=== PATIENT | female | born 1970 | race Caucasian/White ===

== ENCOUNTER 2020-01-01 09:42 | Outpatient (CLI) | payer BC, SELFPAY ==
--- NOTE | 2020-01-01 10:03 | XR_ITS ---
WS: [id number] XR knee LT 3V* [id number] REASON FOR EXAM: left knee pain FINDINGS: Degenerated settling of the medial meniscal portion of the left knee. The patella femoral articulation shows degenerate changes. The patella tibial space is narrowed suggesting slight abnormal configuration. Mild lateral tracking of the patella is also seen. XR/XR knee LT 3V* [id number] IMPRESSION: Patella Vergae Degenerated medial meniscal disease Degenerated changes of the patella femoral articulation.
== END 2020-01-01 09:43 | disposition home or self-care (01) ==
LOC: RAD 09:44
PROVIDERS: Family Provider Nurse Practitioner Family; PCP Nurse Practitioner Family; Visit Provider Orthopaedic Surgery
DX: M17.12 Unilateral primary osteoarthritis, left knee (principal); M25.562 Pain in left knee
CPT/HCPCS: 73562

== ENCOUNTER 2020-02-12 07:48 | Day surgery (SDC) | payer BC, SELFPAY ==
[2020-02-11 12:10] VITALS: BMI 55.3
[2020-02-12 08:06] VITALS: BP 167/88; PULSE 77; RESP 16; TEMP 36.4; O2SAT 97
[2020-02-12] MEDS: sodium chloride 0.9% 1,000 ML 30 ML IV (08:11)
--- NOTE | 2020-02-12 08:11 | ANES.PREANE2 ---
Pre-Anesthetic Assessment Pre-Anesthetic Assessment: Height/Weight: Height 1.63 m Weight 146.057 kg Temp Pulse Resp BP Pulse Ox 97.5 F L 77 16 167/88 97 02/12/20 08:06 02/12/20 08:06 02/12/20 08:06 02/12/20 08:06 02/12/20 08:06 Preop Diagnosis: Persistent GERD and screening colonoscopy Proposed Procedure: Operation Date: 02/12/20 09:30 Proposed Procedures p EGD/COLON 82293 14847 K21.9 Z12.11(Not Applicable) - Maurilio Juarez MD s Colonoscopy(Not Applicable) - Maurilio Juarez MD Familial anesthetic complications: None Was Beta Yariel taken within 24 hours: N/A Last intake: Intake Last Liquid Date 02/11/20 Last Liquid Time 22:00 Last Solid Date 02/10/20 Last Solid Time 22:00 Social: Social History: No alcohol and No tobacco Exam: Pre-Anes Outpt Exam: alert, oriented x 3, clear to auscultation bilaterally and regular rate & rhythm Airway: Cervical ROM: WNL MP: 3 Additional comments: missing Pulmonary: Pulmonary: Asthma (2 different inhalers) CV/HEM: CV/HEM: HTN : : None reported Hepatic: Hepatic: None reported GI: GI: GERD Metabolic: Metabolic: Morbid obesity Musc/skel: Musc/skel: None reported Neuropsych: Neuropsych: None reported Anesthetic Plan: ASA status: 2 Anesthesia: MAC Risk of > 500 ml blood loss (7ml/kg in children): No PFSH Anesthesia PFSH: Social History Smoking and tobacco status: never smoked Alcohol intake: never Data Anesthesia Cardiac Studies: No Data to Display
--- NOTE | 2020-02-12 08:21 | W.PM.OPSUD ---
Surgery/Procedure H&P Update DATE OF PROCEDURE: February 12, 2020 DATE H&P PERFORMED: 02/05/20 H&P UPDATE INFORMATION: I have reviewed H&P completed within last 30 days, I have examined patient prior to procedure and No changes to prior documentation PREOP DIAGNOSIS: Persistent GERD and screening colonoscopy PLANNED PROCEDURE: Operation Date: 02/12/20 09:30 Proposed Procedures p EGD/COLON 16514 23474 K21.9 Z12.11(Not Applicable) - Maurilio Juarez MD s Colonoscopy(Not Applicable) - Maurilio Juarez MD
[2020-02-12 09:38] VITALS: BP 118/83; PULSE 66; RESP 20; TEMP 36.6; O2SAT 98
[2020-02-12 09:53] VITALS: BP 119/83; PULSE 68; RESP 20; TEMP 36.6; O2SAT 98
[2020-02-13 14:26] LABS: H. Pylori / CLO Test Positive
== END 2020-02-12 10:15 | disposition home or self-care (01) ==
PROVIDERS: Family Provider Nurse Practitioner Family; PCP Physician Assistant Medical; Visit Provider Surgery
PROC: 0DJ08ZZ Inspection of Upper Intestinal Tract, Via Natural or Artificial Opening Endoscopic (ICD-10-PCS; CPT 43235; principal; 2020-02-12 09:25)
PROC: 0DJD8ZZ Inspection of Lower Intestinal Tract, Via Natural or Artificial Opening Endoscopic (ICD-10-PCS; CPT 45378; 2020-02-12 09:25)
DX: Z12.11 Encounter for screening for malignant neoplasm of colon (principal); K21.9 Gastro-esophageal reflux disease without esophagitis; K29.70 Gastritis, unspecified, without bleeding; E66.01 Morbid (severe) obesity due to excess calories; Z68.43 Body mass index [BMI] 50.0-59.9, adult; I10 Essential (primary) hypertension
CPT/HCPCS: 43239; 45378; 12345; 87077; J2704; J7030

== ENCOUNTER 2020-02-21 13:26 | Outpatient (CLI) | payer BC, SELFPAY ==
--- NOTE | 2020-02-21 14:30 | XR_ITS ---
WS: [id number] LATERAL LUMBAR SPINE: 3 view. Lateral radiographs are performed in upright neutral, flexion and extension to the patient's toleranc e. HISTORY: Low back pain COMPARISON: None available. Straightening of the normal lumbar lordosis. Very slight rotation of the vertebral bodies is probably due to scoliosis. L4 retrolisthesis by 2 mm with no change during flexion or extension. No instabili ty. Mild disc space narrowing and small endplate osteophytes throughout the lumbar spine. XR/XR lumbar spine f/e only [id number] IMPRESSION: 1. L4 retrolisthesis by 2 mm with no instability. 2. Multilevel moderate spondylosis.
== END 2020-02-21 13:27 | disposition home or self-care (01) ==
LOC: RADWPI 13:33
PROVIDERS: Family Provider Nurse Practitioner Family; PCP Physician Assistant Medical; Visit Provider Licensed Practical Nurse
DX: M54.5 Low back pain (principal); M47.816 Spondylosis without myelopathy or radiculopathy, lumbar region
CPT/HCPCS: 72120

== ENCOUNTER 2020-02-28 09:32 | Outpatient (RCR) | payer BC, SELFPAY | END 2020-03-16 23:59 | disposition home or self-care (01) | LOC: SPT 09:32 | PROVIDERS: PCP Physician Assistant Medical; Referring Provider Licensed Practical Nurse; Visit Provider Licensed Practical Nurse | DX: M51.16 Intervertebral disc disorders with radiculopathy, lumbar region (principal) | CPT/HCPCS: 97110; 97162 ==

== ENCOUNTER → 2020-03-12 08:31 | Outpatient (BNVA) | payer BC, SELFPAY | PROVIDERS: Family Provider Nurse Practitioner Family; PCP Physician Assistant Medical; Referring Provider Licensed Practical Nurse; Visit Provider Anesthesiology Pain Medicine | DX: M54.42 Lumbago with sciatica, left side (principal); M54.41 Lumbago with sciatica, right side; M48.062 Spinal stenosis, lumbar region with neurogenic claudication | CPT/HCPCS: 99204 ==

== ENCOUNTER → 2020-03-24 13:18 | Outpatient (BNVA) | payer BC, SELFPAY | PROVIDERS: Family Provider Nurse Practitioner Family; PCP Physician Assistant Medical; Visit Provider Anesthesiology Pain Medicine | DX: M47.816 Spondylosis without myelopathy or radiculopathy, lumbar region (principal) | CPT/HCPCS: 99213 ==

== ENCOUNTER → 2020-04-24 08:56 | Outpatient (BNVA) | payer BC, SELFPAY | PROVIDERS: Family Provider Nurse Practitioner Family; PCP Physician Assistant Medical; Visit Provider Anesthesiology Pain Medicine | DX: M54.42 Lumbago with sciatica, left side (principal); M54.41 Lumbago with sciatica, right side; M47.816 Spondylosis without myelopathy or radiculopathy, lumbar region; M48.062 Spinal stenosis, lumbar region with neurogenic claudication; Z79.891 Long term (current) use of opiate analgesic | CPT/HCPCS: 99214 ==

== ENCOUNTER → 2020-05-12 13:45 | Outpatient (BNVA) | payer BC, SELFPAY | PROVIDERS: Family Provider Nurse Practitioner Family; PCP Physician Assistant Medical; Visit Provider Anesthesiology Pain Medicine | DX: M47.816 Spondylosis without myelopathy or radiculopathy, lumbar region (principal); M48.062 Spinal stenosis, lumbar region with neurogenic claudication; Z79.891 Long term (current) use of opiate analgesic | CPT/HCPCS: 64493; 64494; 64495; J3490 ==

== ENCOUNTER → 2020-05-27 09:05 | Outpatient (BNVA) | payer BC, SELFPAY | PROVIDERS: Family Provider Nurse Practitioner Family; PCP Physician Assistant Medical; Visit Provider Anesthesiology Pain Medicine | DX: M47.816 Spondylosis without myelopathy or radiculopathy, lumbar region (principal); M48.062 Spinal stenosis, lumbar region with neurogenic claudication; M25.551 Pain in right hip; Z79.891 Long term (current) use of opiate analgesic | CPT/HCPCS: 99213 ==

== ENCOUNTER 2020-06-17 20:00 | Outpatient (CLI) | payer BC, SELFPAY | END 2020-06-17 20:01 | disposition home or self-care (01) | LOC: SLEEP 06-18 09:01 | PROVIDERS: Family Provider Nurse Practitioner Family; PCP Physician Assistant Medical; Visit Provider Surgery | DX: G47.33 Obstructive sleep apnea (adult) (pediatric) (principal) | CPT/HCPCS: 95810 ==

== ENCOUNTER 2021-02-23 08:57 | Outpatient (CLI) | payer OTHER, SELFPAY ==
--- NOTE | 2021-02-23 09:30 | USCV_ITS ---
Cathi Sheikh Age: 50 Gender: F : 1970 Exam Date: 02/23/2021 09:18 Ordering Phys: Maurilio Juarez MD Technologist: Mana Horn [place] [facility] [place] BLE SWELLING HISTORY: Lower extremity swelling. PROCEDURES: Venous duplex imaging was performed in bilateral lower extremities. The following venous structures were evaluated: common femoral vein, profunda vein, proximal portion of the greater saphenous vein, superficial femoral vein, and the popliteal vein. In addition, the posterior tibial and peroneal trunk were evaluated. Serial compression, augmentation maneuvers, and spectral Doppler flow evaluation were performed. FINDINGS: Examination was technically limited due to body habitus. Normal 2-D Doppler and augmentation and compressibility throughout the lower extremity venous structures. Additional imaging through the proximal calf veins also reveals no thrombus. Limited evaluation of the greater saphenous vein is patent with no thrombus. CONCLUSIONS No DVT bilateral lower extremities. Dr. Cher Gibbons DO (Electronically Signed) Final Date: 23 Feb 2021 10:26 S
== END 2021-02-23 08:58 | disposition home or self-care (01) ==
PROVIDERS: PCP Physician Assistant Medical; Visit Provider Surgery
DX: M79.89 Other specified soft tissue disorders (principal)
CPT/HCPCS: 93970

== ENCOUNTER 2021-08-24 12:40 | Outpatient (CLI) | payer OTHER, SELFPAY ==
--- NOTE | 2021-08-24 13:02 | MM_ITS ---
WS: [id number] DIAGNOSTIC BILATERAL DIGITAL MAMMOGRAM WITH CAD HISTORY: ABNORMAL MAMMOGRAM RT BREAST/RT ASYMMETRY COMPARISON: 07/10/2020. TECHNIQUE: Bilateral craniocaudad, mediolateral oblique, and mediolateral views are submitted. Multip le spot compression views RIGHT CC and MLO. Computer aided detection utilized. Breast composition: There are scattered areas of fibroglandular density. Patient returns for [facility] imaging from a mammogram dated 07/10/2020. No suspicious residual abnormalities are identified with in the RIGHT breast. All of these areas have either resolved or become much smaller. None of these ar e suspicious. No calcifications. MM/[id number] IMPRESSION: BI-RADS: 2-Benign FOLLOW UP: 1 Year Follow-up
== END 2021-08-24 12:41 | disposition home or self-care (01) ==
LOC: RADSHAW 12:43
PROVIDERS: PCP Physician Assistant Medical; Visit Provider Physician Assistant Medical
DX: R92.8 Other abnormal and inconclusive findings on diagnostic imaging of breast (principal); N64.89 Other specified disorders of breast
CPT/HCPCS: 77066

== ENCOUNTER → 2022-03-29 15:10 | Outpatient (BNVA) | payer BC, MEDICAID, SELFPAY | PROVIDERS: Referring Provider Nurse Practitioner Family; Visit Provider Specialist | DX: G62.89 Other specified polyneuropathies (principal) | CPT/HCPCS: 95910; 95912 ==

== ENCOUNTER → 2022-03-31 13:24 | Outpatient (BNVA) | payer BC, MEDICAID, SELFPAY | PROVIDERS: Visit Provider Surgery | DX: E66.01 Morbid (severe) obesity due to excess calories (principal); Z68.43 Body mass index [BMI] 50.0-59.9, adult; E66.9 Obesity, unspecified; M51.17 Intervertebral disc disorders with radiculopathy, lumbosacral region; M17.12 Unilateral primary osteoarthritis, left knee; M48.062 Spinal stenosis, lumbar region with neurogenic claudication | CPT/HCPCS: 99213 ==

== ENCOUNTER → 2022-05-26 09:34 | Outpatient (BNVA) | payer BC, MEDICAID, SELFPAY | PROVIDERS: Visit Provider Surgery | DX: E66.01 Morbid (severe) obesity due to excess calories (principal); Z68.43 Body mass index [BMI] 50.0-59.9, adult; M17.12 Unilateral primary osteoarthritis, left knee; R20.0 Anesthesia of skin; R20.2 Paresthesia of skin | CPT/HCPCS: 99213 ==

== ENCOUNTER 2022-12-15 11:39 | Outpatient (CLI) | payer OTHER, BC, MEDICAID, SELFPAY ==
--- NOTE | 2022-12-15 11:52 | MM_ITS ---
WS: [id number] BILATERAL SCREENING DIGITAL TOMOSYNTHESIS MAMMOGRAM WITH CAD HISTORY: SCREENING COMPARISON: 08/24/2021, 07/10/2020 Bilateral CC and MLO views with tomosynthesis and synthetic mammography submitted. Computer aided det ection analyzed. Breast composition: The breasts are almost entirely fatty. No suspicious masses, microcalcifications or architectural distortion. Benign lymph node 9:00 RIGHT breast. MM/[id number] IMPRESSION: BI-RADS: 2-Benign FOLLOW UP: 1 Year Follow-up
== END 2022-12-15 11:40 | disposition home or self-care (01) ==
LOC: RAD 11:44
PROVIDERS: PCP Family Medicine; Visit Provider Family Medicine
DX: Z12.31 Encounter for screening mammogram for malignant neoplasm of breast (principal)
CPT/HCPCS: 77063; 77067

== ENCOUNTER 2024-03-08 12:00 | Outpatient (CLI) | payer OTHER, BC, MEDICAID, SELFPAY ==
--- NOTE | 2024-03-08 | ECG_ITS ---
[facility] Test Date: 2024-03-08 Pat Name: Cathi Sheikh Department: Room: Gender: Female Rn Delivery: : 1970 Requested By: Love Edmondson Order Number: [id number] Jennifer MD: Kevin Burger M.D. Interpretive Statements NAME OF STUDY: TREADMILL STRESS TEST INDICATION: Chest Pain PROCEDURE: At the baseline, the patient's blood pressure was 92/62 with a heart rate of 86. The baseline electrocardiogram showed normal sinus rhythm with normal ST-Ts. Poor R wave progression. Possible old inferior wall MO. The patient exercised for 6 minutes on a modified Greg protocol. Patient attained a maximum heart rate of 148 beats per minute(87% of the maximum predicted heart rate) with a blood pressure at the peak exercise of 109/60 mm Hg. The EKG at the peak exercise revealed no significant changes. Patient did not have any chest pain or any significant cardiac arrhythmias with the exercise During the recovery phase, there were no new changes. Blood pressure at the end of the recovery phase was 116/69 mm Hg with a heart rate of 74 per minute. CONCLUSION: 1. No significant EKG changes with the treadmill exercise 2. No exercise-induced chest pain or cardiac arrhythmia 3. Impaired exercise tolerance, attained a maximum of 7.0 METs Electronically Signed On 03-12-2024 22:47:47 CDT by Kevin Burger M.D. [id number]
[2024-03-08 13:06] VITALS: BP 123/64; PULSE 75
== END 2024-03-08 12:01 | disposition home or self-care (01) ==
LOC: CDL 12:03
PROVIDERS: PCP Family Medicine; Visit Provider Registered Nurse
DX: R07.9 Chest pain, unspecified (principal); R06.09 Other forms of dyspnea; R00.1 Bradycardia, unspecified; R94.39 Abnormal result of other cardiovascular function study
CPT/HCPCS: 93017